=== PATIENT | female | born 1940 | race Hispanic/Latino ===

== ENCOUNTER 2016-12-11 11:08 | Inpatient (IN) | payer MEDICAID, MEDICARE ==
[2016-12-11] MEDS ORDERED: LEVAQUIN 500MG/100ML 500 MG/100 ML BAG IV ONE ×2 (14:18→20:00)
[2016-12-11] MEDS ORDERED: PROVENTIL IH PRN (17:03)
--- NOTE | 2016-12-11 17:27 | History and Physical Report ---
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 She has been in usual state of health until 4 weeks ago when she began having increase in sob and cough. Her symptoms got progressive worse over the past few days. Her reports that she has not been able to do much at home without being extremely sob. He reports that she unable to take ashower without dyspnea. She has had no fever no hemoptysis no syncope. On arrival to office pt was in distress w o2 sat of 76% on 2lpm. She had a cxr done in office that showed no acute process. she also received solumedrol 40mg im x 1 in office Past History Past Medical History: COPD, hypertension Past Surgical History: No surgical history Social history: , lives with family, smoking, full code Family history: CAD, hypertension, stroke Medications and Allergies Allergies Allergy/AdvReac Type Severity Reaction Status Date / Time codeine AdvReac Severe Unknown Unverified 07/29/13 11:26 Active Meds: Active Medications Albuterol (Proventil) 2.5 mg IH Q6HRT [facility] Albuterol (Proventil) 2.5 mg IH Q4HRT PRN PRN Reason: Shortness Of Breath Amlodipine Besylate (Norvasc) 5 mg PO DAILY [facility] Arformoterol Tartrate (Brovana Nebu) 15 mcg IH Q12HRT [facility] Budesonide (Pulmicort) 0.25 mg IH Q12HRT [facility] Heparin Sodium (Porcine) (Heparin) 5,000 unit SUB-Q Q12HR [facility] Hydrochlorothiazide (Hctz) 12.5 mg PO ONCE ONE Stop: 12/12/16 08:01 Levofloxacin/Dextrose (Levaquin 500mg/100ml) 100 mls @ 100 mls/hr IV ONCE ONE Stop: 12/11/16 15:17 Sodium Chloride (Nacl 0.9% 500 Ml) 500 mls @ 50 mls/hr IV DIRECT [facility] Lisinopril (Zestril) 40 mg PO ONCE ONE Stop: 12/12/16 08:01 Methylprednisolone Sodium Succinate (Solu-Medrol) 80 mg IV Q8H [facility] Review of Systems Constitutional: anorexia, fatigue, weakness, malaise, poor appetite Ears, nose, mouth and throat: ear pain Breasts: deferred Respiratory: cough with sputum, excessive sputum, shortness of breath, dyspnea on exertion, congestion, wheezing, respiratory infections, home oxygen Musculoskeletal: neck pain Psychiatric: anxiety Exam - Constitutional Vitals: Temp Pulse Resp BP Pulse Ox 98 F 84 23 120/62 97 12/11/16 16:50 12/11/16 16:50 12/11/16 16:50 12/11/16 16:50 12/11/16 17:04 General appearance: Present: mild distress - EENT Eyes: Present: EOM intact ENT: other (decreased hearing bilat) - Neck Neck: Present: normal ROM - Respiratory Respiratory effort: accessory muscle use Respiratory: bilateral: diminished, wheezing - Cardiovascular Rhythm: regular Heart Sounds: Present: S1 & S2 - Extremities Extremities: pulses symmetrical, Full ROM Extremity abnormal: other (ecchymosis) - Abdominal General gastrointestinal: Present: soft, non-tender, non-distended Female genitourinary: Present: deferred - Rectal Rectal Exam: deferred - Integumentary Integumentary: Present: decreased turgor Results - Imaging and Cardiology Chest x-ray: image reviewed (hyperinflation cardiomegaly) Assessment and Plan - Patient Problems (1) COPD exacerbation Current Visit: Yes Status: Acute (2) Acute bronchitis Current Visit: Yes Status: Acute Qualifiers: Bronchitis organism: B (3) Acute and chronic respiratory failure with hypoxia Current Visit: Yes Status: Acute
[2016-12-11] MEDS ORDERED: AYR SALINE NS PRN (17:37)
[2016-12-11 18:15] LABS: Hemoglobin 13.5 gm/dl (10.1-14.3); Mean Corpuscular HGB Conc 33 % (30-34); Mean Corpuscular Hemoglobin 30 pg (28-32); Mean Corpuscular Volume 91 fl (79-97); Platelet Count 369 K/mm3 (140-440); Red Blood Count 4.53 M/mm3 (3.65-5.03); Red Cell Distribution Width 13.4 % (13.2-15.2); White Blood Count 9.8 K/mm3 (4.5-11.0)
[2016-12-11 18:24] LABS: Alanine Aminotransferase 19 units/L (7-56); Albumin 4.5 g/dL (3.9-5); Albumin/Globulin Ratio 1.6 %; Alkaline Phosphatase 91 units/L (35-129); Anion Gap 19 mmol/L; BUN/Creatinine Ratio 18.33; Bilirubin,Total 0.3 mg/dL (0.1-1.2); Blood Urea Nitrogen 11 mg/dL (7-17); Calcium 9.3 mg/dL (8.4-10.2); Carbon Dioxide 34 mmol/L (22-30); Chloride 76.5 mmol/L (98-107); Glucose 139 mg/dL (65-100); Potassium 3.7 mmol/L (3.6-5.0); Sodium 126 mmol/L (137-145); Total Protein 7.4 g/dL (6.3-8.2)
[2016-12-11] MEDS: PROTONIX PO SCH (19:11)
[2016-12-11] MEDS: HABITROL TD SCH (19:11)
[2016-12-11] MEDS: NACL 0.9% 500 ML 500 ML IV SCH (19:13)
[2016-12-11 19:14] LABS: Basophils % (Manual) 0 % (0.0-1.8); Blastocytes % (Manual) 0 %; Eosinophils % (Manual) 0 % (0.0-4.3); Platelet Estimate Consistent w Auto
[2016-12-11 19:15] LABS: Diff Status Complete; RBC Morphology Normal
--- NOTE | 2016-12-11 20:45 | History and Physical Report ---
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 She has been in usual state of health until 4 weeks ago when she began having increase in sob and cough. Her symptoms got progressive worse over the past few days. Her reports that she has not been able to do much at home without being extremely sob. He reports that she unable to take ashower without dyspnea. She has had no fever no hemoptysis no syncope. On arrival to Dr Motta's office - pt was in distress w o2 sat of 76% on 2lpm. She had a cxr done in office that showed no acute process. she also received solumedrol 40mg im x 1 in office Past History Past Medical History: COPD, hypertension Past Surgical History: No surgical history Social history: , lives with family, smoking, full code Family history: CAD, hypertension, stroke Medications and Allergies Allergies Allergy/AdvReac Type Severity Reaction Status Date / Time codeine AdvReac Severe Unknown Unverified 07/29/13 11:26 Home Medications Medication Instructions Recorded Confirmed Last Taken Type Albuterol Sulfate [Ventolin HFA] 2 puff IH Q4H PRN 12/11/16 12/11/16 1 Day Ago History Pravastatin Sodium [Pravastatin] 40 mg PO QHS 12/11/16 12/11/16 1 Day Ago History Active Meds: Active Medications Albuterol (Proventil) 2.5 mg IH Q6HRT [facility] Albuterol (Proventil) 2.5 mg IH Q4HRT PRN PRN Reason: Shortness Of Breath Amlodipine Besylate (Norvasc) 5 mg PO DAILY [facility] Arformoterol Tartrate (Brovana Nebu) 15 mcg IH Q12HRT [facility] Budesonide (Pulmicort) 0.25 mg IH Q12HRT [facility] Ezetimibe (Zetia) 10 mg PO QDAY [facility] Heparin Sodium (Porcine) (Heparin) 5,000 unit SUB-Q Q12HR [facility] Hydrochlorothiazide (Hctz) 12.5 mg PO ONCE ONE Stop: 12/12/16 08:01 Sodium Chloride (Nacl 0.9% 500 Ml) 500 mls @ 50 mls/hr IV DIRECT [facility] Last Admin: 12/11/16 19:13 Dose: 50 mls/hr Levofloxacin/Dextrose (Levaquin 500mg/100ml) 500 mg in 100 mls @ 100 mls/hr IV ONCE ONE Stop: 12/11/16 20:59 Last Admin: 12/11/16 19:55 Dose: Not Given Lisinopril (Zestril) 40 mg PO ONCE ONE Stop: 12/12/16 08:01 Methylprednisolone Sodium Succinate (Solu-Medrol) 80 mg IV Q8H [facility] Last Admin: 12/11/16 19:12 Dose: 80 mg Nicotine (Habitrol) 14 mg TD QDAY [facility] Last Admin: 12/11/16 19:11 Dose: 14 mg Pantoprazole Sodium (Protonix) 40 mg PO QDAY [facility] Last Admin: 12/11/16 19:11 Dose: 40 mg Sodium Chloride ([place] Saline) 1 applic NS PRN PRN PRN Reason: Dry Nasal Passages Review of Systems Respiratory: cough with sputum, shortness of breath, wheezing Exam - Constitutional Vitals: Temp Pulse Resp BP Pulse Ox 98 F 82 22 120/62 95 12/11/16 16:50 12/11/16 17:39 12/11/16 20:06 12/11/16 16:50 12/11/16 20:06 General appearance: Present: no acute distress, well-nourished - EENT Eyes: Present: PERRL ENT: hearing intact, clear oral mucosa - Neck Neck: Present: supple, normal ROM - Respiratory Respiratory effort: normal Respiratory: bilateral: rhonchi, wheezing - Cardiovascular Heart Sounds: Present: S1 & S2. Absent: rub, click - Extremities Extremities: pulses symmetrical, No edema Peripheral Pulses: within normal limits - Abdominal General gastrointestinal: Present: soft, non-tender, non-distended, normal bowel sounds Female genitourinary: Present: normal - Integumentary Integumentary: Present: clear, warm, dry - Musculoskeletal Musculoskeletal: gait normal, strength equal bilaterally - Psychiatric Psychiatric: appropriate mood/affect, intact judgment & insight - Neurologic Neurologic: CNII-XII intact, moves all extremities Results - Labs CBC & Chem 7: 12/11/16 17:46 12/11/16 17:46 Labs: Abnormal lab results 12/11/16 12/11/16 Range/Units 17:46 17:46 Seg Neuts % (Manual) 96.0 H (40.0-70.0) % Lymphocytes % (Manual) 2.0 L (13.4-35.0) % Seg Neutrophils # Man 9.4 H (1.8-7.7) K/mm3 Lymphocytes # (Manual) 0.2 L (1.2-5.4) K/mm3 Sodium 126 L (137-145) mmol/L Chloride 76.5 L (98-107) mmol/L Carbon Dioxide 34 H (22-30) mmol/L Creatinine 0.6 L (0.7-1.2) mg/dL Glucose 139 H (65-100) mg/dL Short CBC 12/11/16 Range/Units 17:46 WBC 9.8 (4.5-11.0) K/mm3 Hgb 13.5 (10.1-14.3) gm/dl Hct 41.0 (30.3-42.9) % Plt Count 369 (140-440) K/mm3 BMP 12/11/16 17:46 Sodium 126 L Potassium 3.7 Chloride 76.5 L Carbon Dioxide 34 H BUN 11 Creatinine 0.6 L Glucose 139 H Calcium 9.3 Liver Function 12/11/16 Range/Units 17:46 Total Bilirubin 0.3 (0.1-1.2) mg/dL AST 26 (5-40) units/L ALT 19 (7-56) units/L Alkaline Phosphatase 91 (35-129) units/L Albumin 4.5 (3.9-5) g/dL - Imaging and Cardiology Chest x-ray: report reviewed Assessment and Plan - Patient Problems (1) Acute and chronic respiratory failure with hypoxia Current Visit: Yes Status: Acute Plan to address problem: Cont Neb tx Solumedrol and abx (2) COPD exacerbation Current Visit: Yes Status: Acute Plan to address problem: Same as above (3) HTN (hypertension) Current Visit: Yes Status: Chronic Qualifiers: Hypertension type: essential hypertension Qualified Code(s): I10 - Essential (primary) hypertension Plan to address problem: Cont antihypertensives (4) DVT prophylaxis Current Visit: Yes Status: Acute Plan to address problem: On Lovenox
[2016-12-11] MEDS ORDERED: NACL 3% 500 ML IV ONE (20:47)
[2016-12-11] MEDS ORDERED: PROAIR IH PRN (20:53)
[2016-12-11] MEDS: PROVENTIL IH SCH (21:30)
[2016-12-11] MEDS: PULMICORT IH SCH (21:30)
[2016-12-11] MEDS: BROVANA NEBU IH SCH (21:34)
[2016-12-11] MEDS: HEPARIN SUB-Q SCH (23:44)
[2016-12-12] MEDS: ZOCOR PO SCH ×2 (00:25→22:33)
[2016-12-12] MEDS: PROVENTIL IH SCH ×4 (02:17→20:40)
[2016-12-12] MEDS: PULMICORT IH SCH ×2 (07:59→20:40)
[2016-12-12] MEDS: BROVANA NEBU IH SCH ×2 (07:59→20:40)
[2016-12-12] MEDS ORDERED: HCTZ PO ONE (08:00)
[2016-12-12] MEDS ORDERED: ZESTRIL PO ONE (08:00)
[2016-12-12] MEDS: NACL 0.9% 500 ML 500 ML IV SCH ×3 (08:16→22:41)
--- NOTE | 2016-12-12 09:08 | Admit Criteria Form ---
Admission Criteria Documentation: COPD Clinical Indications for Admission to Inpatient Care (Place 'X' for any and all applicable criteria): Admission is indicated for ANY ONE of the following (1)(2)(3): [ ]I. Acute exacerbation by high-risk comorbidity (e.g., pneumonia, dysrhythmia, heart failure, pleural effusion, pneumothorax) or severe underlying COPD (e.g., steroid dependent) [ X]II. Inpatient admission required rather than observation care (see Chronic Obstructive Pulmonary Disease: Observation Care) because of ANY ONE of the following: [ X]a) New or pre-existing signs or symptoms of COPD (eg, dyspnea or Tachypnea at rest or with minimal activity) that persist despite outpatient and observation care treatment [ ]b) New-onset hypoxemia (room air SaO2 less than 90%, PO2 less than 60 mm Hg (8.0 kPa)) that persists despite outpatient and observation care treatment [ ]c) Worsening of pre-existing hypoxemia (eg, new or increased requirement for supplemental oxygen to maintain oxygenation at baseline level) that persists despite outpatient and observation care treatment, with oxygen treatment needs performable only in acute inpatient setting [ ]d) Hypercarbia (PCO2 greater than 40 mm Hg (5.3 kPa))-induced respiratory acidosis (pH less than 7.35) that persists despite outpatient and observation care treatment [ ]e) Supplemental oxygen or respiratory treatments for over 24 hours that are performable only in acute inpatient setting [ ]f) Chest tube placement with active evacuation (e.g., suction, drainage) (5) [ ]g) Other condition, treatment or monitoring requiring inpatient admission [ ]III. Planned invasive surgical or diagnostic procedures requiring acute- care hospitalization [ X]IV. Acute respiratory failure (e.g., uncompensated hypercarbia, severe hypoxemia) [ ]V. Severe comorbid condition (e.g., severe steroid myopathy, acute vertebral fracture) that has acutely worsened pulmonary function [ ]. Confusion state, lethargy, obtundation, stupor or coma Extended stay beyond goal length of stay may be needed for (31)(32): [ ]a ) Respiratory Failure. [ ]b) Severe or persisting hypoxemia or hypercarbia [ ]c) Severe or persistent dyspnea [ ]d) Comorbidities (e.g. chronic heart failure, atrial fibrillation with rapid response, pneumonia) [ ]e) Malnutrition The original [facility] content created by [facility] has been revised. The portions of the content which have been revised are identified through the use of italic text or in bold, and [facility] has neither reviewed nor approved the modified material. All other unmodified content is copyright [facility]. Please see references footnoted in the original [facility] edition 2016 Admission Criteria Met: Yes
[2016-12-12] MEDS: NORVASC PO SCH (10:26)
[2016-12-12] MEDS: ZETIA PO SCH (10:27)
[2016-12-12] MEDS: HABITROL TD SCH (10:28)
[2016-12-12] MEDS: PROTONIX PO SCH (10:28)
[2016-12-12] MEDS: HEPARIN SUB-Q SCH ×2 (10:28→22:33)
--- NOTE | 2016-12-12 11:12 | Progress Note ---
Assessment and Plan Assessment and plan: 1. Acute COPD exacerbation. Continue IV steroids, nebulizers and IV antibiotics. 2. Acute bronchitis. Continue antibiotics. 3. Acute on chronic hypoxemic respiratory failure. Etiology secondary to #1. Continue O2. Supportive care. 4. Hypertension. Continue antihypertensives medications. History Interval history: 76-year-old female presents with acute on chronic hypoxemic respiratory failure second or COPD exacerbation. Patient states she feels slightly better but still short of breath. Hospitalist Physical - Constitutional Vitals: Temp Pulse Resp BP Pulse Ox 97.7 F 89 20 118/58 95 12/12/16 08:00 12/12/16 08:09 12/12/16 08:09 12/12/16 08:00 12/12/16 08:00 General appearance: Present: no acute distress, well-nourished - EENT Eyes: Present: PERRL, EOM intact ENT: hearing intact, clear oral mucosa, dentition normal - Neck Neck: Present: supple, normal ROM - Respiratory Respiratory effort: normal Respiratory: bilateral: diminished, wheezing - Cardiovascular Rhythm: regular Heart Sounds: Present: S1 & S2. Absent: gallop, rub - Extremities Extremities: no ischemia, No edema, Full ROM - Abdominal General gastrointestinal: soft, non-tender, non-distended, normal bowel sounds - Integumentary Integumentary: Present: clear, warm, dry - Neurologic Neurologic: CNII-XII intact, moves all extremities Results - Labs CBC & Chem 7: 12/11/16 17:46 12/11/16 17:46 Labs: Laboratory Last Values WBC 9.8 K/mm3 (4.5-11.0) 12/11/16 17:46 RBC 4.53 M/mm3 (3.65-5.03) 12/11/16 17:46 Hgb 13.5 gm/dl (10.1-14.3) 12/11/16 17:46 Hct 41.0 % (30.3-42.9) 12/11/16 17:46 MCV 91 fl (79-97) 12/11/16 17:46 MCH 30 pg (28-32) 12/11/16 17:46 MCHC 33 % (30-34) 12/11/16 17:46 RDW 13.4 % (13.2-15.2) 12/11/16 17:46 Plt Count 369 K/mm3 (140-440) 12/11/16 17:46 Add Manual Diff Complete 12/11/16 17:46 Total Counted 100 12/11/16 17:46 Seg Neutrophils % Residential Sales Representative 12/11/16 17:46 Seg Neuts % (Manual) 96.0 % (40.0-70.0) H 12/11/16 17:46 Band Neutrophils % 0 % 12/11/16 17:46 Lymphocytes % (Manual) 2.0 % (13.4-35.0) L 12/11/16 17:46 Reactive Lymphs % (Man) 0 % 12/11/16 17:46 Monocytes % (Manual) 2.0 % (0.0-7.3) 12/11/16 17:46 Eosinophils % (Manual) 0 % (0.0-4.3) 12/11/16 17:46 Basophils % (Manual) 0 % (0.0-1.8) 12/11/16 17:46 Metamyelocytes % 0 % 12/11/16 17:46 Myelocytes % 0 % 12/11/16 17:46 Promyelocytes % 0 % 12/11/16 17:46 Blast Cells % 0 % 12/11/16 17:46 Nucleated RBC % Not Reportable 12/11/16 17:46 Seg Neutrophils # Man 9.4 K/mm3 (1.8-7.7) H 12/11/16 17:46 Band Neutrophils # 0.0 K/mm3 12/11/16 17:46 Lymphocytes # (Manual) 0.2 K/mm3 (1.2-5.4) L 12/11/16 17:46 Abs React Lymphs (Man) 0.0 K/mm3 12/11/16 17:46 Monocytes # (Manual) 0.2 K/mm3 (0.0-0.8) 12/11/16 17:46 Eosinophils # (Manual) 0.0 K/mm3 (0.0-0.4) 12/11/16 17:46 Basophils # (Manual) 0.0 K/mm3 (0.0-0.1) 12/11/16 17:46 Metamyelocytes # 0.0 K/mm3 12/11/16 17:46 Myelocytes # 0.0 K/mm3 12/11/16 17:46 Promyelocytes # 0.0 K/mm3 12/11/16 17:46 Blast Cells # 0.0 K/mm3 12/11/16 17:46 WBC Morphology Not Reportable 12/11/16 17:46 Hypersegmented Neuts Not Reportable 12/11/16 17:46 Hyposegmented Neuts Not Reportable 12/11/16 17:46 Hypogranular Neuts Not Reportable 12/11/16 17:46 Smudge Cells Not Reportable 12/11/16 17:46 Toxic Granulation Not Reportable 12/11/16 17:46 Toxic Vacuolation Not Reportable 12/11/16 17:46 Dohle Bodies Not Reportable 12/11/16 17:46 Pelger-Huet Anomaly Not Reportable 12/11/16 17:46 Jayme Rods Not Reportable 12/11/16 17:46 Platelet Estimate Consistent w auto 12/11/16 17:46 Clumped Platelets Not Reportable 12/11/16 17:46 Plt Clumps, EDTA Not Reportable 12/11/16 17:46 Large Platelets Not Reportable 12/11/16 17:46 Giant Platelets Not Reportable 12/11/16 17:46 Platelet Satelliting Not Reportable 12/11/16 17:46 Plt Morphology Comment Not Reportable 12/11/16 17:46 RBC Morphology Normal 12/11/16 17:46 Dimorphic RBCs Not Reportable 12/11/16 17:46 Polychromasia Not Reportable 12/11/16 17:46 Hypochromasia Not Reportable 12/11/16 17:46 Poikilocytosis Not Reportable 12/11/16 17:46 Anisocytosis Not Reportable 12/11/16 17:46 Microcytosis Not Reportable 12/11/16 17:46 Macrocytosis Not Reportable 12/11/16 17:46 Spherocytes Not Reportable 12/11/16 17:46 Pappenheimer Bodies Not Reportable 12/11/16 17:46 Sickle Cells Not Reportable 12/11/16 17:46 Target Cells Not Reportable 12/11/16 17:46 Tear Drop Cells Not Reportable 12/11/16 17:46 Ovalocytes Not Reportable 12/11/16 17:46 Helmet Cells Not Reportable 12/11/16 17:46 [place] Bodies Not Reportable 12/11/16 17:46 [place] Rings Not Reportable 12/11/16 17:46 [place] Cells Not Reportable 12/11/16 17:46 Bite Cells Not Reportable 12/11/16 17:46 Crenated Cell Not Reportable 12/11/16 17:46 Elliptocytes Not Reportable 12/11/16 17:46 Acanthocytes (Spur) Not Reportable 12/11/16 17:46 Rouleaux Not Reportable 12/11/16 17:46 Hemoglobin C Crystals Not Reportable 12/11/16 17:46 Schistocytes Not Reportable 12/11/16 17:46 Malaria parasites Not Reportable 12/11/16 17:46 Sam Bodies Not Reportable 12/11/16 17:46 Hem Pathologist Commnt No 12/11/16 17:46 Sodium 126 mmol/L (137-145) L 12/11/16 17:46 Potassium 3.7 mmol/L (3.6-5.0) 12/11/16 17:46 Chloride 76.5 mmol/L (98-107) L 12/11/16 17:46 Carbon Dioxide 34 mmol/L (22-30) H 12/11/16 17:46 Anion Gap 19 mmol/L 12/11/16 17:46 BUN 11 mg/dL (7-17) 12/11/16 17:46 Creatinine 0.6 mg/dL (0.7-1.2) L 12/11/16 17:46 Estimated GFR > 60 ml/min 12/11/16 17:46 BUN/Creatinine Ratio 18.33 % 12/11/16 17:46 Glucose 139 mg/dL (65-100) H 12/11/16 17:46 Calcium 9.3 mg/dL (8.4-10.2) 12/11/16 17:46 Total Bilirubin 0.3 mg/dL (0.1-1.2) 12/11/16 17:46 AST 26 units/L (5-40) 12/11/16 17:46 ALT 19 units/L (7-56) 12/11/16 17:46 Alkaline Phosphatase 91 units/L (35-129) 12/11/16 17:46 Total Protein 7.4 g/dL (6.3-8.2) 12/11/16 17:46 Albumin 4.5 g/dL (3.9-5) 12/11/16 17:46 Albumin/Globulin Ratio 1.6 % 12/11/16 17:46
[2016-12-12] MEDS: LEVAQUIN 500MG/100ML 500 MG/100 ML BAG IV SCH (11:31)
--- NOTE | 2016-12-12 15:29 | Progress Note ---
Assessment and Plan Imp: 1. Acute bronchitis 2. COPD exac. 3. A/C respiratory failure, hypoxia 4. Hyponatremia 5. Chronic nicotine dependence, cigs Rec: 1. Levaquin, Solumedrol, Albuterol nebs 2. Would stop HCTZ; repeat sodium in AM 3. Stop smoking, counseled 4. Further plans pending clinical course Plan of care reviewed w/ patient/family, they understand/agree Subjective Date of service: 12/12/16 Principal diagnosis: COPD exac. Interval history: No events. Awake, alert. SOB and wheezing better. Has some congestion. No chest pain. On O2 at home. Still smoking. Active Medications Albuterol (Proventil) 2.5 mg IH Q6HRT [facility] Last Admin: 12/12/16 13:31 Dose: 2.5 mg Albuterol (Proventil) 2.5 mg IH Q4HRT PRN PRN Reason: Shortness Of Breath Amlodipine Besylate (Norvasc) 5 mg PO DAILY [facility] Last Admin: 12/12/16 10:26 Dose: Not Given Arformoterol Tartrate (Brovana Nebu) 15 mcg IH Q12HRT [facility] Last Admin: 12/12/16 07:59 Dose: Not Given Budesonide (Pulmicort) 0.25 mg IH Q12HRT [facility] Last Admin: 12/12/16 07:59 Dose: 0.25 mg Ezetimibe (Zetia) 10 mg PO QDAY [facility] Last Admin: 12/12/16 10:27 Dose: 10 mg Heparin Sodium (Porcine) (Heparin) 5,000 unit SUB-Q Q12HR [facility] Last Admin: 12/12/16 10:28 Dose: 5,000 unit Sodium Chloride (Nacl 0.9% 500 Ml) 500 mls @ 50 mls/hr IV DIRECT [facility] Last Admin: 12/12/16 11:47 Dose: 50 mls/hr Levofloxacin/Dextrose (Levaquin 500mg/100ml) 500 mg in 100 mls @ 100 mls/hr IV Q24HR [facility] PRN Reason: Protocol Last Admin: 12/12/16 11:31 Dose: 100 mls/hr Methylprednisolone Sodium Succinate (Solu-Medrol) 80 mg IV Q8H [facility] Last Admin: 12/12/16 10:00 Dose: 80 mg Nicotine (Habitrol) 14 mg TD QDAY [facility] Last Admin: 12/12/16 10:28 Dose: 14 mg Pantoprazole Sodium (Protonix) 40 mg PO QDAY [facility] Last Admin: 12/12/16 10:28 Dose: 40 mg Simvastatin (Zocor) 20 mg PO QHS [facility] Last Admin: 12/12/16 00:25 Dose: 20 mg Sodium Chloride ([place] Saline) 1 applic NS PRN PRN PRN Reason: Dry Nasal Passages Zolpidem Tartrate (Ambien) 5 mg PO QHS PRN PRN Reason: Sleep Objective Vital Signs - 12hr 12/12/16 12/12/16 12/12/16 04:00 07:58 08:00 Temperature 97.6 F 97.7 F Pulse Rate [ 86 Anterior Bilateral] Pulse Rate [ 86 82 Right Brachial] Respiratory 20 18 Rate Respiratory 20 Rate [Anterior Bilateral] Blood Pressure 123/58 118/58 [Right Arm] O2 Sat by Pulse 95 95 95 Oximetry 12/12/16 12/12/16 12/12/16 08:09 13:31 13:43 Temperature Pulse Rate [ 89 93 H 91 H Anterior Bilateral] Pulse Rate [ Right Brachial] Respiratory Rate Respiratory 20 18 20 Rate [Anterior Bilateral] Blood Pressure [Right Arm] O2 Sat by Pulse Oximetry Constitutional: no acute distress, alert Eyes: non-icteric ENT: oropharynx moist Neck: supple Effort: normal Ascultation: Bilateral: wheezes Cardiovascular: regular rate and rhythm Gastrointestinal: normoactive bowel sounds, soft, non-tender, non-distended Integumentary: normal Extremities: no cyanosis, no edema, pink and warm Neurologic: normal mental status, non-focal exam, pupils equal and round, CN II- XII normal Psychiatric: mood appropriate, affect normal CBC and BMP: 12/11/16 17:46 12/11/16 17:46 Abnormal lab findings: Abnormal Labs 12/11/16 12/11/16 17:46 17:46 Seg Neuts % (Manual) 96.0 H Lymphocytes % (Manual) 2.0 L Seg Neutrophils # Man 9.4 H Lymphocytes # (Manual) 0.2 L Sodium 126 L Chloride 76.5 L Carbon Dioxide 34 H Creatinine 0.6 L Glucose 139 H
[2016-12-12] MEDS: AMBIEN PO PRN (22:34)
[2016-12-13] MEDS: PROVENTIL IH SCH ×4 (01:53→20:47)
[2016-12-13 06:50] LABS: Hematocrit 39.6 % (30.3-42.9); Hemoglobin 13.1 gm/dl (10.1-14.3); Mean Corpuscular HGB Conc 33 % (30-34); Mean Corpuscular Hemoglobin 30 pg (28-32); Mean Corpuscular Volume 91 fl (79-97); Platelet Count 353 K/mm3 (140-440); Red Blood Count 4.33 M/mm3 (3.65-5.03); Red Cell Distribution Width 13.4 % (13.2-15.2); White Blood Count 8.3 K/mm3 (4.5-11.0)
[2016-12-13 07:14] LABS: Anion Gap 11 mmol/L; Blood Urea Nitrogen 12 mg/dL (7-17); Calcium 9.1 mg/dL (8.4-10.2); Carbon Dioxide 37 mmol/L (22-30); Chloride 85.7 mmol/L (98-107); Glucose 131 mg/dL (65-100); Potassium 3.9 mmol/L (3.6-5.0); Sodium 130 mmol/L (137-145)
[2016-12-13] MEDS: PULMICORT IH SCH ×2 (09:11→20:47)
[2016-12-13] MEDS: BROVANA NEBU IH SCH ×2 (09:11→21:09)
--- NOTE | 2016-12-13 09:40 | Progress Note ---
Assessment and Plan COPD exacerbation. Slowly improving. Well-known case of noncompliant status with smoking cessation, most likely triggering current episode Acute exacerbation of chronic bronchitis Tobacco abuse Recommendations Continue nebulizer every 4 hours Continue IV steroids and consider decreasing on the next 24-48 hrs. this depending on patient's clinical status Continue antibiotics Nicotine replacement if needed I anticipate a slow course because of ongoing smoking prior to admission. I discussed this with the patient and family in detail Subjective Date of service: 12/13/16 Principal diagnosis: COPD exac. Acute exacerbation of chronic bronchitis, noncompliant with smo Interval history: Still some cough and chest congestion with wheezing. Nebulizer therapy helping Objective Vital Signs - 12hr 12/13/16 12/13/16 12/13/16 00:00 04:00 08:00 Temperature 98.5 F 98.3 F 98.0 F Pulse Rate [ 91 H 79 76 Right Brachial] Respiratory 20 20 18 Rate Blood Pressure 105/57 [Left Arm] Blood Pressure 115/59 114/56 [Right Arm] O2 Sat by Pulse 96 93 97 Oximetry Constitutional: no acute distress, alert Eyes: non-icteric ENT: oropharynx moist Neck: supple Effort: normal Ascultation: Bilateral: wheezes, rhonchi Cardiovascular: regular rate and rhythm Gastrointestinal: normoactive bowel sounds, soft, non-tender, non-distended Integumentary: normal Extremities: no cyanosis, no edema, pink and warm Neurologic: normal mental status, non-focal exam, pupils equal and round, CN II- XII normal Psychiatric: mood appropriate, affect normal CBC and BMP: 12/13/16 06:19 12/13/16 06:19 Abnormal lab findings: Abnormal Labs 12/11/16 12/11/16 12/13/16 17:46 17:46 06:19 Seg Neuts % (Manual) 96.0 H Lymphocytes % (Manual) 2.0 L Seg Neutrophils # Man 9.4 H Lymphocytes # (Manual) 0.2 L Sodium 126 L 130 L Chloride 76.5 L 85.7 L Carbon Dioxide 34 H 37 H Creatinine 0.6 L 0.4 L Glucose 139 H 131 H
[2016-12-13] MEDS: NACL 0.9% 500 ML 500 ML IV SCH ×2 (09:46→19:33)
[2016-12-13] MEDS: LEVAQUIN 500MG/100ML 500 MG/100 ML BAG IV SCH (09:48)
[2016-12-13] MEDS: HABITROL TD SCH (09:48)
[2016-12-13] MEDS: PROTONIX PO SCH (09:49)
[2016-12-13] MEDS: ZETIA PO SCH (09:49)
[2016-12-13] MEDS: NORVASC PO SCH (09:50)
[2016-12-13] MEDS: HEPARIN SUB-Q SCH ×2 (09:51→22:38)
[2016-12-13 10:42] LABS: Basophils % (Manual) 0 % (0.0-1.8); Blastocytes % (Manual) 0 %; Diff Status Complete; Eosinophils % (Manual) 0 % (0.0-4.3); Platelet Estimate Consistent w Auto
--- NOTE | 2016-12-13 11:40 | Progress Note ---
Assessment and Plan Assessment and plan: 1. Acute COPD exacerbation. Continue IV steroids, nebulizers and IV antibiotics. 2. Acute bronchitis. Continue antibiotics. 3. Acute on chronic hypoxemic respiratory failure. Etiology secondary to #1. Continue O2. Supportive care. 4. Hypertension. Continue antihypertensives medications. 5. Hyponatremia. 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 Patient states she feels slightly better but still short of breath. Hospitalist Physical - Constitutional Vitals: Temp Pulse Resp BP Pulse Ox 98.0 F 76 18 114/56 97 12/13/16 08:00 12/13/16 09:50 12/13/16 08:00 12/13/16 09:50 12/13/16 08:00 General appearance: Present: no acute distress, well-nourished - EENT Eyes: Present: PERRL, EOM intact ENT: hearing intact, clear oral mucosa, dentition normal - Neck Neck: Present: supple, normal ROM - Respiratory Respiratory effort: normal Respiratory: bilateral: diminished, rhonchi, wheezing - Cardiovascular Rhythm: regular Heart Sounds: Present: S1 & S2. Absent: gallop, rub - Extremities Extremities: no ischemia, No edema, Full ROM - Abdominal General gastrointestinal: soft, non-tender, non-distended, normal bowel sounds - Integumentary Integumentary: Present: clear, warm, dry - Neurologic Neurologic: CNII-XII intact, moves all extremities Results - Labs CBC & Chem 7: 12/13/16 06:19 12/13/16 06:19 Labs: Laboratory Last Values WBC 8.3 K/mm3 (4.5-11.0) 12/13/16 06:19 RBC 4.33 M/mm3 (3.65-5.03) 12/13/16 06:19 Hgb 13.1 gm/dl (10.1-14.3) 12/13/16 06:19 Hct 39.6 % (30.3-42.9) 12/13/16 06:19 MCV 91 fl (79-97) 12/13/16 06:19 MCH 30 pg (28-32) 12/13/16 06:19 MCHC 33 % (30-34) 12/13/16 06:19 RDW 13.4 % (13.2-15.2) 12/13/16 06:19 Plt Count 353 K/mm3 (140-440) 12/13/16 06:19 Add Manual Diff Complete 12/13/16 06:19 Total Counted 100 12/13/16 06:19 Seg Neutrophils % [facility] 12/13/16 06:19 Seg Neuts % (Manual) 92.0 % (40.0-70.0) H 12/13/16 06:19 Band Neutrophils % 0 % 12/13/16 06:19 Lymphocytes % (Manual) 4.0 % (13.4-35.0) L 12/13/16 06:19 Reactive Lymphs % (Man) 0 % 12/13/16 06:19 Monocytes % (Manual) 4.0 % (0.0-7.3) 12/13/16 06:19 Eosinophils % (Manual) 0 % (0.0-4.3) 12/13/16 06:19 Basophils % (Manual) 0 % (0.0-1.8) 12/13/16 06:19 Metamyelocytes % 0 % 12/13/16 06:19 Myelocytes % 0 % 12/13/16 06:19 Promyelocytes % 0 % 12/13/16 06:19 Blast Cells % 0 % 12/13/16 06:19 Nucleated RBC % Not Reportable 12/13/16 06:19 Seg Neutrophils # Man 7.6 K/mm3 (1.8-7.7) 12/13/16 06:19 Band Neutrophils # 0.0 K/mm3 12/13/16 06:19 Lymphocytes # (Manual) 0.3 K/mm3 (1.2-5.4) L 12/13/16 06:19 Abs React Lymphs (Man) 0.0 K/mm3 12/13/16 06:19 Monocytes # (Manual) 0.3 K/mm3 (0.0-0.8) 12/13/16 06:19 Eosinophils # (Manual) 0.0 K/mm3 (0.0-0.4) 12/13/16 06:19 Basophils # (Manual) 0.0 K/mm3 (0.0-0.1) 12/13/16 06:19 Metamyelocytes # 0.0 K/mm3 12/13/16 06:19 Myelocytes # 0.0 K/mm3 12/13/16 06:19 Promyelocytes # 0.0 K/mm3 12/13/16 06:19 Blast Cells # 0.0 K/mm3 12/13/16 06:19 WBC Morphology Not Reportable 12/13/16 06:19 Hypersegmented Neuts Not Reportable 12/13/16 06:19 Hyposegmented Neuts Not Reportable 12/13/16 06:19 Hypogranular Neuts Not Reportable 12/13/16 06:19 Smudge Cells Not Reportable 12/13/16 06:19 Toxic Granulation Not Reportable 12/13/16 06:19 Toxic Vacuolation Not Reportable 12/13/16 06:19 Dohle Bodies Not Reportable 12/13/16 06:19 Pelger-Huet Anomaly Not Reportable 12/13/16 06:19 Jayme Rods Not Reportable 12/13/16 06:19 Platelet Estimate Consistent w auto 12/13/16 06:19 Clumped Platelets Not Reportable 12/13/16 06:19 Plt Clumps, EDTA Not Reportable 12/13/16 06:19 Large Platelets Not Reportable 12/13/16 06:19 Giant Platelets Not Reportable 12/13/16 06:19 Platelet Satelliting Not Reportable 12/13/16 06:19 Plt Morphology Comment Not Reportable 12/13/16 06:19 RBC Morphology Not Reportable 12/13/16 06:19 Dimorphic RBCs Not Reportable 12/13/16 06:19 Polychromasia Not Reportable 12/13/16 06:19 Hypochromasia Not Reportable 12/13/16 06:19 Poikilocytosis Not Reportable 12/13/16 06:19 Anisocytosis Not Reportable 12/13/16 06:19 Microcytosis Not Reportable 12/13/16 06:19 Macrocytosis Not Reportable 12/13/16 06:19 Spherocytes Not Reportable 12/13/16 06:19 Pappenheimer Bodies Not Reportable 12/13/16 06:19 Sickle Cells Not Reportable 12/13/16 06:19 Target Cells Not Reportable 12/13/16 06:19 Tear Drop Cells Not Reportable 12/13/16 06:19 Ovalocytes Not Reportable 12/13/16 06:19 Helmet Cells Not Reportable 12/13/16 06:19 [place] Bodies Not Reportable 12/13/16 06:19 [place] Rings Not Reportable 12/13/16 06:19 Lam Cells Not Reportable 12/13/16 06:19 Bite Cells Not Reportable 12/13/16 06:19 Crenated Cell Not Reportable 12/13/16 06:19 Elliptocytes Not Reportable 12/13/16 06:19 Acanthocytes (Spur) Not Reportable 12/13/16 06:19 Rouleaux Not Reportable 12/13/16 06:19 Hemoglobin C Crystals Not Reportable 12/13/16 06:19 Schistocytes Not Reportable 12/13/16 06:19 Malaria parasites Not Reportable 12/13/16 06:19 Sam Bodies Not Reportable 12/13/16 06:19 Hem Pathologist Commnt No 12/13/16 06:19 Sodium 130 mmol/L (137-145) L 12/13/16 06:19 Potassium 3.9 mmol/L (3.6-5.0) 12/13/16 06:19 Chloride 85.7 mmol/L (98-107) L 12/13/16 06:19 Carbon Dioxide 37 mmol/L (22-30) H 12/13/16 06:19 Anion Gap 11 mmol/L 12/13/16 06:19 BUN 12 mg/dL (7-17) 12/13/16 06:19 Creatinine 0.4 mg/dL (0.7-1.2) L 12/13/16 06:19 Estimated GFR > 60 ml/min 12/13/16 06:19 BUN/Creatinine Ratio 30.00 % 12/13/16 06:19 Glucose 131 mg/dL (65-100) H 12/13/16 06:19 Calcium 9.1 mg/dL (8.4-10.2) 12/13/16 06:19 Total Bilirubin 0.3 mg/dL (0.1-1.2) 12/11/16 17:46 AST 26 units/L (5-40) 12/11/16 17:46 ALT 19 units/L (7-56) 12/11/16 17:46 Alkaline Phosphatase 91 units/L (35-129) 12/11/16 17:46 Total Protein 7.4 g/dL (6.3-8.2) 12/11/16 17:46 Albumin 4.5 g/dL (3.9-5) 12/11/16 17:46 Albumin/Globulin Ratio 1.6 % 12/11/16 17:46
[2016-12-13] MEDS: AMBIEN PO PRN (22:37)
[2016-12-13] MEDS: ZOCOR PO SCH (22:37)
[2016-12-14] MEDS: PROVENTIL IH SCH ×5 (01:15→20:39)
[2016-12-14] MEDS: NACL 0.9% 500 ML 500 ML IV SCH ×2 (06:12→17:53)
[2016-12-14] MEDS: PULMICORT IH SCH ×2 (08:17→20:38)
[2016-12-14] MEDS: BROVANA NEBU IH SCH ×2 (08:17→20:38)
--- NOTE | 2016-12-14 11:42 | Progress Note ---
Assessment and Plan Assessment and plan: 1. Acute COPD exacerbation. Continue IV steroids, nebulizers and IV antibiotics. Wean steroids today 2. Acute bronchitis. Continue antibiotics. 3. Acute on chronic hypoxemic respiratory failure. Etiology secondary to #1. Continue O2. Supportive care. 4. Hypertension. Continue antihypertensives medications. 5. Hyponatremia. 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 Patient states she feels slightly better but still short of breath. Hospitalist Physical - Constitutional Vitals: Temp Pulse Resp BP Pulse Ox 98.2 F 87 20 118/56 98 12/14/16 07:51 12/14/16 08:18 12/14/16 08:18 12/14/16 07:51 12/14/16 07:51 General appearance: Present: no acute distress, well-nourished - EENT Eyes: Present: PERRL, EOM intact ENT: hearing intact, clear oral mucosa, dentition normal - Neck Neck: Present: supple, normal ROM - Respiratory Respiratory effort: normal Respiratory: bilateral: diminished, wheezing - Cardiovascular Rhythm: regular Heart Sounds: Present: S1 & S2. Absent: gallop, rub - Extremities Extremities: no ischemia, No edema, Full ROM - Abdominal General gastrointestinal: soft, non-tender, non-distended, normal bowel sounds - Integumentary Integumentary: Present: clear, warm, dry - Neurologic Neurologic: CNII-XII intact, moves all extremities Results - Labs CBC & Chem 7: 12/13/16 06:19 12/13/16 06:19 Labs: Laboratory Last Values WBC 8.3 K/mm3 (4.5-11.0) 12/13/16 06:19 RBC 4.33 M/mm3 (3.65-5.03) 12/13/16 06:19 Hgb 13.1 gm/dl (10.1-14.3) 12/13/16 06:19 Hct 39.6 % (30.3-42.9) 12/13/16 06:19 MCV 91 fl (79-97) 12/13/16 06:19 MCH 30 pg (28-32) 12/13/16 06:19 MCHC 33 % (30-34) 12/13/16 06:19 RDW 13.4 % (13.2-15.2) 12/13/16 06:19 Plt Count 353 K/mm3 (140-440) 12/13/16 06:19 Add Manual Diff Complete 12/13/16 06:19 Total Counted 100 12/13/16 06:19 Seg Neutrophils % Rehabilitation Program Coordinator 12/13/16 06:19 Seg Neuts % (Manual) 92.0 % (40.0-70.0) H 12/13/16 06:19 Band Neutrophils % 0 % 12/13/16 06:19 Lymphocytes % (Manual) 4.0 % (13.4-35.0) L 12/13/16 06:19 Reactive Lymphs % (Man) 0 % 12/13/16 06:19 Monocytes % (Manual) 4.0 % (0.0-7.3) 12/13/16 06:19 Eosinophils % (Manual) 0 % (0.0-4.3) 12/13/16 06:19 Basophils % (Manual) 0 % (0.0-1.8) 12/13/16 06:19 Metamyelocytes % 0 % 12/13/16 06:19 Myelocytes % 0 % 12/13/16 06:19 Promyelocytes % 0 % 12/13/16 06:19 Blast Cells % 0 % 12/13/16 06:19 Nucleated RBC % Not Reportable 12/13/16 06:19 Seg Neutrophils # Man 7.6 K/mm3 (1.8-7.7) 12/13/16 06:19 Band Neutrophils # 0.0 K/mm3 12/13/16 06:19 Lymphocytes # (Manual) 0.3 K/mm3 (1.2-5.4) L 12/13/16 06:19 Abs React Lymphs (Man) 0.0 K/mm3 12/13/16 06:19 Monocytes # (Manual) 0.3 K/mm3 (0.0-0.8) 12/13/16 06:19 Eosinophils # (Manual) 0.0 K/mm3 (0.0-0.4) 12/13/16 06:19 Basophils # (Manual) 0.0 K/mm3 (0.0-0.1) 12/13/16 06:19 Metamyelocytes # 0.0 K/mm3 12/13/16 06:19 Myelocytes # 0.0 K/mm3 12/13/16 06:19 Promyelocytes # 0.0 K/mm3 12/13/16 06:19 Blast Cells # 0.0 K/mm3 12/13/16 06:19 WBC Morphology Not Reportable 12/13/16 06:19 Hypersegmented Neuts Not Reportable 12/13/16 06:19 Hyposegmented Neuts Not Reportable 12/13/16 06:19 Hypogranular Neuts Not Reportable 12/13/16 06:19 Smudge Cells Not Reportable 12/13/16 06:19 Toxic Granulation Not Reportable 12/13/16 06:19 Toxic Vacuolation Not Reportable 12/13/16 06:19 Dohle Bodies Not Reportable 12/13/16 06:19 Pelger-Huet Anomaly Not Reportable 12/13/16 06:19 Jayme Rods Not Reportable 12/13/16 06:19 Platelet Estimate Consistent w auto 12/13/16 06:19 Clumped Platelets Not Reportable 12/13/16 06:19 Plt Clumps, EDTA Not Reportable 12/13/16 06:19 Large Platelets Not Reportable 12/13/16 06:19 Giant Platelets Not Reportable 12/13/16 06:19 Platelet Satelliting Not Reportable 12/13/16 06:19 Plt Morphology Comment Not Reportable 12/13/16 06:19 RBC Morphology Not Reportable 12/13/16 06:19 Dimorphic RBCs Not Reportable 12/13/16 06:19 Polychromasia Not Reportable 12/13/16 06:19 Hypochromasia Not Reportable 12/13/16 06:19 Poikilocytosis Not Reportable 12/13/16 06:19 Anisocytosis Not Reportable 12/13/16 06:19 Microcytosis Not Reportable 12/13/16 06:19 Macrocytosis Not Reportable 12/13/16 06:19 Spherocytes Not Reportable 12/13/16 06:19 Pappenheimer Bodies Not Reportable 12/13/16 06:19 Sickle Cells Not Reportable 12/13/16 06:19 Target Cells Not Reportable 12/13/16 06:19 Tear Drop Cells Not Reportable 12/13/16 06:19 Ovalocytes Not Reportable 12/13/16 06:19 Helmet Cells Not Reportable 12/13/16 06:19 [place] Bodies Not Reportable 12/13/16 06:19 [place] Rings Not Reportable 12/13/16 06:19 Lam Cells Not Reportable 12/13/16 06:19 Bite Cells Not Reportable 12/13/16 06:19 Crenated Cell Not Reportable 12/13/16 06:19 Elliptocytes Not Reportable 12/13/16 06:19 Acanthocytes (Spur) Not Reportable 12/13/16 06:19 Rouleaux Not Reportable 12/13/16 06:19 Hemoglobin C Crystals Not Reportable 12/13/16 06:19 Schistocytes Not Reportable 12/13/16 06:19 Malaria parasites Not Reportable 12/13/16 06:19 Sam Bodies Not Reportable 12/13/16 06:19 Hem Pathologist Commnt No 12/13/16 06:19 Sodium 130 mmol/L (137-145) L 12/13/16 06:19 Potassium 3.9 mmol/L (3.6-5.0) 12/13/16 06:19 Chloride 85.7 mmol/L (98-107) L 12/13/16 06:19 Carbon Dioxide 37 mmol/L (22-30) H 12/13/16 06:19 Anion Gap 11 mmol/L 12/13/16 06:19 BUN 12 mg/dL (7-17) 12/13/16 06:19 Creatinine 0.4 mg/dL (0.7-1.2) L 12/13/16 06:19 Estimated GFR > 60 ml/min 12/13/16 06:19 BUN/Creatinine Ratio 30.00 % 12/13/16 06:19 Glucose 131 mg/dL (65-100) H 12/13/16 06:19 Calcium 9.1 mg/dL (8.4-10.2) 12/13/16 06:19 Total Bilirubin 0.3 mg/dL (0.1-1.2) 12/11/16 17:46 AST 26 units/L (5-40) 12/11/16 17:46 ALT 19 units/L (7-56) 12/11/16 17:46 Alkaline Phosphatase 91 units/L (35-129) 12/11/16 17:46 Total Protein 7.4 g/dL (6.3-8.2) 12/11/16 17:46 Albumin 4.5 g/dL (3.9-5) 12/11/16 17:46 Albumin/Globulin Ratio 1.6 % 12/11/16 17:46
[2016-12-14] MEDS: LEVAQUIN 500MG/100ML 500 MG/100 ML BAG IV SCH (12:38)
[2016-12-14] MEDS: HABITROL TD SCH (12:39)
[2016-12-14] MEDS: NORVASC PO SCH (12:40)
[2016-12-14] MEDS: PROTONIX PO SCH (12:40)
[2016-12-14] MEDS: ZETIA PO SCH (12:40)
[2016-12-14] MEDS: HEPARIN SUB-Q SCH ×2 (12:49→22:31)
[2016-12-14] MEDS ORDERED: FIORICET PO PRN (19:26)
--- NOTE | 2016-12-14 21:38 | Progress Note ---
Assessment and Plan COPD exacerbation. Slowly improving. Acute exacerbation of chronic bronchitis Tobacco abuse Recommendations Continue nebulizer every 4 hours Continue IV steroids and consider decreasing on the next 24-48 hrs. Continue antibiotics complete 7 days Nicotine replacement I anticipate a slow course because of ongoing smoking.Discussed yesterday and also today. Daughter also concerned about rodent exterminator prognosis.I oriented her and advice pt/family discussion of advanced directives incase or recurrence and/or further deterioration Subjective Date of service: 12/14/16 Principal diagnosis: COPD exac. Acute exacerbation of chronic bronchitis, noncompliant with smo Interval history: Still some chest congestion but less than yesterday.Some cough and wheezing still present Objective Vital Signs - 12hr 12/14/16 12/14/16 12/14/16 10:00 12:40 16:05 Temperature 98.0 F Pulse Rate 84 Pulse Rate [ Anterior Bilateral Throughout] Pulse Rate [ 92 H Right Brachial] Respiratory 20 Rate Respiratory Rate [Anterior Bilateral Throughout] Blood Pressure 118/56 Blood Pressure 130/60 [Right Arm] O2 Sat by Pulse 98 Oximetry 12/14/16 12/14/16 20:41 20:57 Temperature Pulse Rate Pulse Rate [ 88 95 H Anterior Bilateral Throughout] Pulse Rate [ Right Brachial] Respiratory Rate Respiratory 20 22 Rate [Anterior Bilateral Throughout] Blood Pressure Blood Pressure [Right Arm] O2 Sat by Pulse 91 Oximetry Constitutional: no acute distress, alert Eyes: non-icteric ENT: oropharynx moist Neck: supple Effort: normal Ascultation: Bilateral: wheezes, rhonchi Cardiovascular: regular rate and rhythm Gastrointestinal: normoactive bowel sounds, soft, non-tender, non-distended Integumentary: normal Extremities: no cyanosis, no edema, pink and warm Neurologic: normal mental status, non-focal exam, pupils equal and round, CN II- XII normal Psychiatric: mood appropriate, affect normal CBC and BMP: 12/13/16 06:19 12/13/16 06:19 Abnormal lab findings: Abnormal Labs 12/11/16 12/11/16 12/13/16 17:46 17:46 06:19 Seg Neuts % (Manual) 96.0 H 92.0 H Lymphocytes % (Manual) 2.0 L 4.0 L Seg Neutrophils # Man 9.4 H Lymphocytes # (Manual) 0.2 L 0.3 L Sodium 126 L Chloride 76.5 L Carbon Dioxide 34 H Creatinine 0.6 L Glucose 139 H 12/13/16 06:19 Seg Neuts % (Manual) Lymphocytes % (Manual) Seg Neutrophils # Man Lymphocytes # (Manual) Sodium 130 L Chloride 85.7 L Carbon Dioxide 37 H Creatinine 0.4 L Glucose 131 H
[2016-12-14] MEDS: ZOCOR PO SCH (22:31)
[2016-12-14] MEDS: AMBIEN PO PRN (22:32)
[2016-12-15] MEDS: PROVENTIL IH SCH ×4 (01:28→21:48)
[2016-12-15] MEDS: NACL 0.9% 500 ML 500 ML IV SCH ×2 (04:19→16:30)
[2016-12-15] MEDS: BROVANA NEBU IH SCH ×2 (08:57→21:11)
[2016-12-15] MEDS: PULMICORT IH SCH ×2 (08:57→21:11)
[2016-12-15] MEDS: ZETIA PO SCH (09:49)
[2016-12-15] MEDS: NORVASC PO SCH (09:49)
[2016-12-15] MEDS: HABITROL TD SCH (09:50)
[2016-12-15] MEDS: PROTONIX PO SCH (09:50)
[2016-12-15] MEDS: HEPARIN SUB-Q SCH ×2 (09:51→23:13)
--- NOTE | 2016-12-15 10:40 | Progress Note ---
Assessment and Plan Assessment and plan: 1. Acute COPD exacerbation. Continue IV steroids, nebulizers and IV antibiotics. Wean steroids today and transition to prednisone in a.m. 2. Acute bronchitis. Continue antibiotics. 3. Acute on chronic hypoxemic respiratory failure. Etiology secondary to #1. Continue O2 and wean as tolerated. Supportive care. 4. Hypertension. Continue antihypertensives medications. 5. Hyponatremia. 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 Deconditioning. PT/OT eval. 7. DVT prophylaxis. Continue heparin. History Interval history: 76-year-old female presents with acute on chronic hypoxemic respiratory failure secondary to COPD exacerbation. Patient states she feels slightly better but still short of breath. Patient still requiring 5 L of oxygen and normally has home O2 2L Hospitalist Physical - Constitutional Vitals: Temp Pulse Resp BP Pulse Ox 98.2 F 96 H 18 173/73 93 12/15/16 08:18 12/15/16 09:49 12/15/16 09:16 12/15/16 09:49 12/15/16 09:03 General appearance: Present: no acute distress, well-nourished - EENT Eyes: Present: PERRL, EOM intact ENT: hearing intact, clear oral mucosa, dentition normal - Neck Neck: Present: supple, normal ROM - Respiratory Respiratory effort: normal Respiratory: bilateral: diminished, rhonchi, wheezing - Cardiovascular Rhythm: regular Heart Sounds: Present: S1 & S2. Absent: gallop, rub - Extremities Extremities: no ischemia, No edema, Full ROM - Abdominal General gastrointestinal: soft, non-tender, non-distended, normal bowel sounds - Integumentary Integumentary: Present: clear, warm, dry - Neurologic Neurologic: CNII-XII intact, moves all extremities Results - Labs CBC & Chem 7: 12/13/16 06:19 12/13/16 06:19 Labs: Laboratory Last Values WBC 8.3 K/mm3 (4.5-11.0) 12/13/16 06:19 RBC 4.33 M/mm3 (3.65-5.03) 12/13/16 06:19 Hgb 13.1 gm/dl (10.1-14.3) 12/13/16 06:19 Hct 39.6 % (30.3-42.9) 12/13/16 06:19 MCV 91 fl (79-97) 12/13/16 06:19 MCH 30 pg (28-32) 12/13/16 06:19 MCHC 33 % (30-34) 12/13/16 06:19 RDW 13.4 % (13.2-15.2) 12/13/16 06:19 Plt Count 353 K/mm3 (140-440) 12/13/16 06:19 Add Manual Diff Complete 12/13/16 06:19 Total Counted 100 12/13/16 06:19 Seg Neutrophils % Heel Buffer 12/13/16 06:19 Seg Neuts % (Manual) 92.0 % (40.0-70.0) H 12/13/16 06:19 Band Neutrophils % 0 % 12/13/16 06:19 Lymphocytes % (Manual) 4.0 % (13.4-35.0) L 12/13/16 06:19 Reactive Lymphs % (Man) 0 % 12/13/16 06:19 Monocytes % (Manual) 4.0 % (0.0-7.3) 12/13/16 06:19 Eosinophils % (Manual) 0 % (0.0-4.3) 12/13/16 06:19 Basophils % (Manual) 0 % (0.0-1.8) 12/13/16 06:19 Metamyelocytes % 0 % 12/13/16 06:19 Myelocytes % 0 % 12/13/16 06:19 Promyelocytes % 0 % 12/13/16 06:19 Blast Cells % 0 % 12/13/16 06:19 Nucleated RBC % Not Reportable 12/13/16 06:19 Seg Neutrophils # Man 7.6 K/mm3 (1.8-7.7) 12/13/16 06:19 Band Neutrophils # 0.0 K/mm3 12/13/16 06:19 Lymphocytes # (Manual) 0.3 K/mm3 (1.2-5.4) L 12/13/16 06:19 Abs React Lymphs (Man) 0.0 K/mm3 12/13/16 06:19 Monocytes # (Manual) 0.3 K/mm3 (0.0-0.8) 12/13/16 06:19 Eosinophils # (Manual) 0.0 K/mm3 (0.0-0.4) 12/13/16 06:19 Basophils # (Manual) 0.0 K/mm3 (0.0-0.1) 12/13/16 06:19 Metamyelocytes # 0.0 K/mm3 12/13/16 06:19 Myelocytes # 0.0 K/mm3 12/13/16 06:19 Promyelocytes # 0.0 K/mm3 12/13/16 06:19 Blast Cells # 0.0 K/mm3 12/13/16 06:19 WBC Morphology Not Reportable 12/13/16 06:19 Hypersegmented Neuts Not Reportable 12/13/16 06:19 Hyposegmented Neuts Not Reportable 12/13/16 06:19 Hypogranular Neuts Not Reportable 12/13/16 06:19 Smudge Cells Not Reportable 12/13/16 06:19 Toxic Granulation Not Reportable 12/13/16 06:19 Toxic Vacuolation Not Reportable 12/13/16 06:19 Dohle Bodies Not Reportable 12/13/16 06:19 Pelger-Huet Anomaly Not Reportable 12/13/16 06:19 Jayme Rods Not Reportable 12/13/16 06:19 Platelet Estimate Consistent w auto 12/13/16 06:19 Clumped Platelets Not Reportable 12/13/16 06:19 Plt Clumps, EDTA Not Reportable 12/13/16 06:19 Large Platelets Not Reportable 12/13/16 06:19 Giant Platelets Not Reportable 12/13/16 06:19 Platelet Satelliting Not Reportable 12/13/16 06:19 Plt Morphology Comment Not Reportable 12/13/16 06:19 RBC Morphology Not Reportable 12/13/16 06:19 Dimorphic RBCs Not Reportable 12/13/16 06:19 Polychromasia Not Reportable 12/13/16 06:19 Hypochromasia Not Reportable 12/13/16 06:19 Poikilocytosis Not Reportable 12/13/16 06:19 Anisocytosis Not Reportable 12/13/16 06:19 Microcytosis Not Reportable 12/13/16 06:19 Macrocytosis Not Reportable 12/13/16 06:19 Spherocytes Not Reportable 12/13/16 06:19 Pappenheimer Bodies Not Reportable 12/13/16 06:19 Sickle Cells Not Reportable 12/13/16 06:19 Target Cells Not Reportable 12/13/16 06:19 Tear Drop Cells Not Reportable 12/13/16 06:19 Ovalocytes Not Reportable 12/13/16 06:19 Helmet Cells Not Reportable 12/13/16 06:19 [place] Bodies Not Reportable 12/13/16 06:19 [place] Rings Not Reportable 12/13/16 06:19 [place] Cells Not Reportable 12/13/16 06:19 Bite Cells Not Reportable 12/13/16 06:19 Crenated Cell Not Reportable 12/13/16 06:19 Elliptocytes Not Reportable 12/13/16 06:19 Acanthocytes (Spur) Not Reportable 12/13/16 06:19 Rouleaux Not Reportable 12/13/16 06:19 Hemoglobin C Crystals Not Reportable 12/13/16 06:19 Schistocytes Not Reportable 12/13/16 06:19 Malaria parasites Not Reportable 12/13/16 06:19 Sam Bodies Not Reportable 12/13/16 06:19 Hem Pathologist Commnt No 12/13/16 06:19 Sodium 130 mmol/L (137-145) L 12/13/16 06:19 Potassium 3.9 mmol/L (3.6-5.0) 12/13/16 06:19 Chloride 85.7 mmol/L (98-107) L 12/13/16 06:19 Carbon Dioxide 37 mmol/L (22-30) H 12/13/16 06:19 Anion Gap 11 mmol/L 12/13/16 06:19 BUN 12 mg/dL (7-17) 12/13/16 06:19 Creatinine 0.4 mg/dL (0.7-1.2) L 12/13/16 06:19 Estimated GFR > 60 ml/min 12/13/16 06:19 BUN/Creatinine Ratio 30.00 % 12/13/16 06:19 Glucose 131 mg/dL (65-100) H 12/13/16 06:19 Calcium 9.1 mg/dL (8.4-10.2) 12/13/16 06:19 Total Bilirubin 0.3 mg/dL (0.1-1.2) 12/11/16 17:46 AST 26 units/L (5-40) 12/11/16 17:46 ALT 19 units/L (7-56) 12/11/16 17:46 Alkaline Phosphatase 91 units/L (35-129) 12/11/16 17:46 Total Protein 7.4 g/dL (6.3-8.2) 12/11/16 17:46 Albumin 4.5 g/dL (3.9-5) 12/11/16 17:46 Albumin/Globulin Ratio 1.6 % 12/11/16 17:46
[2016-12-15] MEDS: LEVAQUIN 500MG/100ML 500 MG/100 ML BAG IV SCH (10:45)
--- NOTE | 2016-12-15 12:08 | Progress Note ---
Assessment and Plan COPD exacerbation. Slowly improving. Acute exacerbation of chronic bronchitis Tobacco abuse Hyponatremia. Most likely secondary to COPD process at this point Recommendations Continue nebulizer every 4 hours Add Spiriva 1 inhalation daily MB switch over to oral prednisone, 30 mg daily for 5-7 days in the morning Continue antibiotics complete 7 days Nicotine replacement Benefit from pulmonary rehabilitation at discharge. This assuming patient has access to it. This can be initiated after 2 weeks of stable status at home. Subjective Date of service: 12/15/16 Principal diagnosis: COPD exac. Acute exacerbation of chronic bronchitis, noncompliant with smo Interval history: Has some problems with her IV last night. Very little cough this morning. Still some sporadic wheezing Objective Vital Signs - 12hr 12/15/16 12/15/16 12/15/16 08:18 08:57 09:00 Temperature 98.2 F Pulse Rate Pulse Rate [ 96 H Anterior Bilateral Throughout] Pulse Rate [ 101 H Right Brachial] Respiratory 18 Rate Respiratory 18 Rate [Anterior Bilateral Throughout] Blood Pressure Blood Pressure 173/73 [Right Arm] O2 Sat by Pulse 92 92 Oximetry 12/15/16 12/15/16 12/15/16 09:03 09:16 09:49 Temperature Pulse Rate 96 H Pulse Rate [ 86 Anterior Bilateral Throughout] Pulse Rate [ Right Brachial] Respiratory Rate Respiratory 18 Rate [Anterior Bilateral Throughout] Blood Pressure 173/73 Blood Pressure [Right Arm] O2 Sat by Pulse 93 Oximetry Constitutional: no acute distress, alert Eyes: non-icteric ENT: oropharynx moist Neck: supple Effort: normal Ascultation: Bilateral: wheezes (very mild) Cardiovascular: regular rate and rhythm Gastrointestinal: normoactive bowel sounds, soft, non-tender, non-distended Integumentary: normal Extremities: no cyanosis, no edema, pink and warm Neurologic: normal mental status, non-focal exam, pupils equal and round, CN II- XII normal Psychiatric: mood appropriate, affect normal CBC and BMP: 12/13/16 06:19 12/13/16 06:19 Abnormal lab findings: Abnormal Labs 12/11/16 12/11/16 12/13/16 17:46 17:46 06:19 Seg Neuts % (Manual) 96.0 H 92.0 H Lymphocytes % (Manual) 2.0 L 4.0 L Seg Neutrophils # Man 9.4 H Lymphocytes # (Manual) 0.2 L 0.3 L Sodium 126 L Chloride 76.5 L Carbon Dioxide 34 H Creatinine 0.6 L Glucose 139 H 12/13/16 06:19 Seg Neuts % (Manual) Lymphocytes % (Manual) Seg Neutrophils # Man Lymphocytes # (Manual) Sodium 130 L Chloride 85.7 L Carbon Dioxide 37 H Creatinine 0.4 L Glucose 131 H
[2016-12-15] MEDS: AMBIEN PO PRN (23:14)
[2016-12-15] MEDS: ZOCOR PO SCH (23:14)
[2016-12-16] MEDS: PROVENTIL IH SCH ×3 (02:23→13:10)
[2016-12-16] MEDS: NACL 0.9% 500 ML 500 ML IV SCH ×2 (04:42→15:32)
[2016-12-16] MEDS: PULMICORT IH SCH (08:06)
[2016-12-16] MEDS: BROVANA NEBU IH SCH (08:06)
[2016-12-16] MEDS ORDERED: SPIRIVA IH SCH (09:00)
[2016-12-16 09:53] LABS: Blood Urea Nitrogen 12 mg/dL (7-17); Calcium 9.5 mg/dL (8.4-10.2); Glucose 178 mg/dL (65-100); Sodium 133 mmol/L (137-145)
[2016-12-16 09:59] LABS: Anion Gap 12 mmol/L; Carbon Dioxide 41 mmol/L (22-30)
[2016-12-16] MEDS: LEVAQUIN 500MG/100ML 500 MG/100 ML BAG IV SCH (10:16)
[2016-12-16] MEDS: HABITROL TD SCH (10:17)
[2016-12-16] MEDS: NORVASC PO SCH (10:17)
[2016-12-16] MEDS: ZETIA PO SCH (10:18)
[2016-12-16] MEDS: HEPARIN SUB-Q SCH (10:18)
[2016-12-16] MEDS: PROTONIX PO SCH (10:19)
--- NOTE | 2016-12-16 14:36 | Progress Note ---
Assessment and Plan No objection to discharge from a pulmonary standpoint. Would treat with abx for a total of 7 days, including what was given in house Prednisone dose pack for taper Follow up with Kalia Instructed to speak with patient advocate/administration about care Subjective Date of service: 12/16/16 Principal diagnosis: COPD exac. Acute exacerbation of chronic bronchitis, noncompliant with smo Interval history: Upset being in the location that she is in. Very upset with care during hospital stay. Spoke with and daughter at bedside. Patient not sure if she has been transitioned to PO steroids. Objective Vital Signs - 12hr 12/16/16 12/16/16 12/16/16 08:07 08:22 13:10 Temperature 98.2 F Pulse Rate [ 92 H 94 H 92 H Anterior Bilateral Throughout] Pulse Rate [ 83 Right Brachial] Respiratory 22 Rate Respiratory 16 16 16 Rate [Anterior Bilateral Throughout] Blood Pressure 154/74 [Right Arm] O2 Sat by Pulse 94 97 Oximetry 12/16/16 13:25 Temperature Pulse Rate [ 89 Anterior Bilateral Throughout] Pulse Rate [ Right Brachial] Respiratory Rate Respiratory 16 Rate [Anterior Bilateral Throughout] Blood Pressure [Right Arm] O2 Sat by Pulse Oximetry Constitutional: no acute distress, alert Eyes: non-icteric ENT: oropharynx moist Neck: supple Effort: normal Ascultation: Bilateral: wheezes (very mild), rhonchi Cardiovascular: regular rate and rhythm Gastrointestinal: normoactive bowel sounds, soft, non-tender, non-distended Integumentary: normal Extremities: no cyanosis, no edema, pink and warm Neurologic: normal mental status, non-focal exam, pupils equal and round, CN II- XII normal Psychiatric: mood appropriate, affect normal CBC and BMP: 12/13/16 06:19 12/16/16 09:06 Abnormal lab findings: Abnormal Labs 12/11/16 12/11/16 12/13/16 17:46 17:46 06:19 Seg Neuts % (Manual) 96.0 H 92.0 H Lymphocytes % (Manual) 2.0 L 4.0 L Seg Neutrophils # Man 9.4 H Lymphocytes # (Manual) 0.2 L 0.3 L Sodium 126 L Chloride 76.5 L Carbon Dioxide 34 H Creatinine 0.6 L Glucose 139 H 12/13/16 12/16/16 06:19 09:06 Seg Neuts % (Manual) Lymphocytes % (Manual) Seg Neutrophils # Man Lymphocytes # (Manual) Sodium 130 L 133 L Chloride 85.7 L 84.0 L Carbon Dioxide 37 H 41 H* Creatinine 0.4 L 0.4 L Glucose 131 H 178 H
--- NOTE | 2016-12-16 14:49 | Discharge Summary ---
Providers - Providers Date of Admission: 12/11/16 15:35 Date of discharge: 12/16/16 Attending physician: ABRIL MOSQUERA 12/15/16 10:41 Physical Therapy Evaluation and Treat [CONS] Routine Comment: Reason For Exam: deconditioning Primary care physician: GLADYS LOPEZ Hospitalization Reason for admission: COPD exacerbation Hospital course: Mrs. Lopez is a 76-year-old female who presented to the hospital with worsening shortness of breath and a background history of end-stage COPD. She was admitted and started on nebulization treatments and IV steroids and antibiotics. She was seen by the furniture mover helper while she was here. She was also continued on supplemental oxygen. Her shortness of breath improved and she returned to baseline prior to discharge. She was cleared by the furniture mover helper for discharge and to follow-up as an outpatient. Condition at discharge-stable 32 minutes spent preparing discharge Disposition: DISCHARGED TO HOME OR SELFCARE - Discharge Diagnoses (1) Acute and chronic respiratory failure with hypoxia Status: Acute (2) COPD exacerbation Status: Acute (3) HTN (hypertension) Status: Chronic Qualifiers: Hypertension type: essential hypertension Qualified Code(s): I10 - Essential (primary) hypertension Core Measure Documentation - Palliative Care Palliative Care/ Comfort Measures: Not Applicable - Core Measures Any of the following diagnoses?: none Exam - Constitutional Vitals: Temp Pulse Resp BP Pulse Ox 98.2 F 89 16 154/74 97 12/16/16 08:22 12/16/16 13:25 12/16/16 13:25 12/16/16 08:22 12/16/16 08:22 General appearance: Present: no acute distress (on nasal cannula oxygen) - EENT Eyes: Present: PERRL, EOM intact. Absent: scleral icterus, conjunctival injection ENT: hearing intact, clear oral mucosa, no oropharyngeal erythema, no poor dentition - Neck Neck: Present: supple, normal ROM. Absent: enlarged thyroid, masses or JVD - Respiratory Respiratory effort: normal Respiratory: bilateral: diminished, negative: rales, rhonchi, wheezing - Cardiovascular Rhythm: regular Heart Sounds: Present: S1 & S2. Absent: gallop - Extremities Extremities: no ischemia, pulses intact, pulses symmetrical, No edema Peripheral Pulses: within normal limits - Abdominal General gastrointestinal: Present: soft, non-tender, non-distended Female genitourinary: Present: deferred - Rectal Rectal Exam: deferred - Integumentary Integumentary: Present: clear - Musculoskeletal Musculoskeletal: strength equal bilaterally - Psychiatric Psychiatric: appropriate mood/affect - Neurologic Neurologic: CNII-XII intact Plan Activity: advance as tolerated Diet: low salt Follow up with: GLADYS LOPEZ MD [Primary Care Provider] - 7 Days Prescriptions: Doxycycline [Vibramycin CAP] 100 mg PO Q12HR #6 capsule Prednisone [predniSONE 10 mg (6-Day Pack, 21 Tabs)] 10 mg PO .TAPER #1 tab.ds.pk
[2016-12-16 16:01] VITALS: BP 133/61
== END 2016-12-16 17:35 | disposition home or self-care (01) | DRG 189 ==
LOC: UNDOADMIN 11:08 → 3A 11:08
PROVIDERS: ADMIT Internal Medicine; ATTEND Hospitalist
DX: J96.21 Acute and chronic respiratory failure with hypoxia (principal); J44.0 Chronic obstructive pulmonary disease with (acute) lower respiratory infection; J44.1 Chronic obstructive pulmonary disease with (acute) exacerbation; E87.1 Hypo-osmolality and hyponatremia; J20.9 Acute bronchitis, unspecified; I10 Essential (primary) hypertension; F17.210 Nicotine dependence, cigarettes, uncomplicated; Z91.19 Patient's noncompliance with other medical treatment and regimen; Z82.49 Family history of ischemic heart disease and other diseases of the circulatory system; Z82.3 Family history of stroke; Z88.6 Allergy status to analgesic agent
CPT/HCPCS: 36415; 80048; 80053; 85007; 85025; 94640; 94760; 99406; J1644; J1956; J2930; J7040